=== PATIENT | male | born 1940 | race Caucasian/White ===

== ENCOUNTER 2017-12-12 15:30 | Inpatient (IN) | payer SELFPAY ==
[~2017-12-12] VITALS: Ht 176.5 cm; Wt 86.6 kg
[2017-12-12 10:57] VITALS: BP 179/88
[2017-12-12 10:57] LABS: BASOPHILS % (AUTO) 0.6 % (0.0-5.0); EOSINOPHILS % (AUTO) 3.2 % (0.0-8.0); HEMATOCRIT 39.7 % (42-54); LYMPHOCYTES % (AUTO) 22.1 % (21.0-51.0); MEAN CORPUSCULAR HEMOGLOBIN 30.3 pg (27.0-33.0); MEAN CORPUSCULAR HGB CONC 34.5 g/dL (32.0-36.0); MEAN CORPUSCULAR VOLUME 87.6 fL (79-99); MONOCYTES % (AUTO) 8.7 % (3.0-13.0); NEUTROPHILS % (AUTO) 65.4 % (40.0-77.0); PLATELET COUNT (AUTO) 289 K/uL (130-400); RED BLOOD CELL COUNT(AUTO) 4.53 MIL/uL (4.50-6.20); RED CELL DISTRIBUTION WIDTH 13.7 % (11.0-15.5); WHITE BLOOD COUNT (AUTO) 6.5 K/uL (4.8-10.8)
[2017-12-12 10:58] LABS: APPEARANCE,URINE Clear (CLEAR); BILIRUBIN,URINE Negative (NEGATIVE); COLOR,URINE Yellow (YELLOW); GLUCOSE, URINE (UA) Negative (NEGATIVE); KETONES,URINE Negative (NEGATIVE); LEUKOCYTE ESTERASE ,URINE Negative (NEGATIVE); NITRATE,URINE Negative (NEGATIVE); OCCULT BLOOD,URINE Negative (NEGATIVE); PROTEIN,URINE Trace (NEGATIVE); UROBILINOGEN,URINE 0.2 mg/dL (0.2-1.0)
[2017-12-12 11:05] LABS: CREATININE 1.4 mg/dL (0.5-1.5); POTASSIUM 3.9 mmol/L (3.5-5.1)
[2017-12-12 11:20] LABS: RBC,URINE 0-1 /HPF (0-1)
[2017-12-12 11:22] LABS: BACTERIA,URINE Rare /HPF (None Seen); SQUAMOUS EPITHELIAL CELL,UR None Seen /HPF (0-2); WBC,URINE None Seen /HPF (0-1)
[2017-12-12 11:45] LABS: INR 0.98 (0.85-1.15); PARTIAL THROMBOPLASTIN TIME 27.1 SEC (26.3-35.5); PROTHROMBIN TIME 10.3 SEC (9.6-11.6)
[~2017-12-12 15:30] MED LIST: AMIL5TAB8 PO; AMLO10TA2 PO; CALC-866 PO; CARV25TA PO; HYDR25TA PO; LOSA100T29 PO; MULT-950 PO
[2017-12-15] VITALS (23 sets, daily range): BP systolic 90–179; BP diastolic 64–92
[2017-12-15] MEDS ORDERED: LACTATED RINGERS 1000ML 1,000 ML IV ONE (07:05)
[2017-12-15] MEDS ORDERED: BUPIVACAINE/EPI/PF 0.25% 30ML VIAL IJ ONE (07:29)
[2017-12-15] MEDS ORDERED: CEFAZOLIN SODIUM 1 GM VIAL ONE (07:29)
[2017-12-15] MEDS ORDERED: TRANEXAMIC ACID 1000MG/10ML IV ONE (07:30)
[2017-12-15] MEDS: CEFAZOLIN SODIUM 1 GM VIAL ONE ×2 (07:39→08:45)
[2017-12-15] MEDS ORDERED: PROPOFOL 10 MG/ML 20ML VIAL IV ONE (07:45)
[2017-12-15] MEDS ORDERED: FENTANYL CITRATE PF 50 MCG/1 ML 5ML AMP IV ONE (07:45)
[2017-12-15] MEDS ORDERED: ROPIVACAINE 0.5% 5MG/ML 30ML IJ ONE (08:14)
[2017-12-15] MEDS ORDERED: OXYCODONE HCL 5 MG TAB PO PRN ×2 (10:45)
[2017-12-15] MEDS ORDERED: DIPHENHYDRAMINE HCL 25 MG CAPSULE PO PRN (10:45)
[2017-12-15] MEDS ORDERED: POTASSIUM CHLORIDE 10% ELIXIR 20 MEQ/15 ML UDCUP PO PRN (10:45)
[2017-12-15] MEDS ORDERED: CALCIUM CARBONATE 500 MG TABLET PO PRN (10:45)
[2017-12-15] MEDS ORDERED: POTASSIUM CHLORIDE 20MEQ/100ML 100 ML IV PRN (10:45)
[2017-12-15] MEDS ORDERED: TRAMADOL HCL 50 MG TABLET PO PRN (10:45)
[2017-12-15] MEDS ORDERED: PROMETHAZINE HCL 25 MG/ML 1ML AMPULE IM PRN (10:45)
[2017-12-15] MEDS ORDERED: KETOROLAC TROMETHAMINE 15MG/ML IV PRN (10:45)
[2017-12-15] MEDS: ACETAMINOPHEN 325 MG TAB PO SCH ×2 (10:45→16:17)
[2017-12-15] MEDS ORDERED: DiphenhydrAMINE HCL 50 MG/ML VIAL IVP PRN (10:45)
[2017-12-15] MEDS ORDERED: LIDOCAINE HCL-MPF 1% 2ML VIAL IVP PRN (10:45)
[2017-12-15] MEDS ORDERED: TEMAZEPAM 15 MG CAPSULE PO PRN (10:45)
[2017-12-15] MEDS ORDERED: FERROUS FUMARATE 324 MG TABLET PO PRN (10:45)
[2017-12-15] MEDS ORDERED: MEPERIDINE-PF 25 MG/ML SYG ONE ×2 (11:35→11:50)
[2017-12-15] MEDS: SODIUM CHLORIDE 0.9% 1000ML 1,000 ML IV SCH ×2 (12:30→21:02)
[2017-12-15] MEDS: PSYLLIUM SEED 1 EACH PACKET PO SCH (13:38)
[2017-12-15] MEDS ORDERED: CEFAZOLIN 2GM / 50 ML 50 ML IV SCH (15:45)
[2017-12-15] MEDS: CEFAZOLIN SODIUM 1 GM VIAL IVP SCH (16:18)
[2017-12-15] MEDS: FAMOTIDINE 20MG TAB 20 MG TAB PO SCH (21:04)
[2017-12-15] MEDS: PREGABALIN 25 MG CAP PO SCH (21:05)
[2017-12-15] MEDS: CELECOXIB 200 MG CAP PO SCH (21:05)
[2017-12-15] MEDS: ASPIRIN 325 MG TABLET PO SCH (21:05)
[2017-12-15] MEDS: CARVEDILOL 25 MG TABLET PO SCH (21:06)
[2017-12-15] MEDS ORDERED: LOSARTAN 100 MG TABLET PO SCH (23:50)
[2017-12-15] MEDS ORDERED: LOSARTAN 100 MG TABLET ONE (23:52)
[2017-12-16] MEDS: ACETAMINOPHEN 325 MG TAB PO SCH ×3 (00:13→10:22)
[2017-12-16] MEDS: CEFAZOLIN SODIUM 1 GM VIAL IVP SCH (00:15)
[2017-12-16 00:30] VITALS: BP 153/84
[2017-12-16 04:34] VITALS: BP 157/82
[2017-12-16 05:20] LABS: HEMATOCRIT 34.4 % (42-54); MEAN CORPUSCULAR HEMOGLOBIN 31.2 pg (27.0-33.0); MEAN CORPUSCULAR HGB CONC 35.3 g/dL (32.0-36.0); MEAN CORPUSCULAR VOLUME 88.5 fL (79-99); NUCLEATED RED BLOOD CELLS 0.1 % (0.0-0.19); PLATELET COUNT (AUTO) 294 K/uL (130-400); RED BLOOD CELL COUNT(AUTO) 3.88 MIL/uL (4.50-6.20); RED CELL DISTRIBUTION WIDTH 13.9 % (11.0-15.5); WHITE BLOOD COUNT (AUTO) 13.9 K/uL (4.8-10.8)
[2017-12-16 05:33] LABS: CREATININE 1.5 mg/dL (0.5-1.5); POTASSIUM 3.4 mmol/L (3.5-5.1)
[2017-12-16] MEDS: POTASSIUM CHLORIDE 20 MEQ ERTAB PO PRN ×2 (06:33→09:28)
[2017-12-16 07:35] VITALS: BP 171/80
[2017-12-16] MEDS: SODIUM CHLORIDE 0.9% 1000ML 1,000 ML IV SCH (08:00)
[2017-12-16] MEDS ORDERED: POLYETHYLENE GLYCOL 3350 17 GM POWD.PACK PO SCH (09:00)
[2017-12-16] MEDS ORDERED: MULTIVITAMIN TABLET PO SCH (09:00)
[2017-12-16] MEDS ORDERED: AMILORIDE HCL 5 MG TABLET PO SCH (09:00)
[2017-12-16] MEDS ORDERED: LOSARTAN 100 MG TABLET PO SCH (09:00)
[2017-12-16] MEDS ORDERED: TAMSULOSIN HCL 0.4 MG CAP.ER.24H PO SCH (09:00)
[2017-12-16] MEDS ORDERED: CHOLECALCIFEROL 5000 UNIT PO SCH (09:00)
[2017-12-16] MEDS ORDERED: HYDROCHLOROTHIAZIDE 25 MG TABLET PO SCH (09:00)
[2017-12-16] MEDS ORDERED: AMLODIPINE BESYLATE 5 MG TAB PO SCH (09:00)
[2017-12-16] MEDS: ASPIRIN 325 MG TABLET PO SCH (09:26)
[2017-12-16] MEDS: FAMOTIDINE 20MG TAB 20 MG TAB PO SCH (09:26)
[2017-12-16] MEDS: PREGABALIN 25 MG CAP PO SCH (09:26)
[2017-12-16] MEDS: CELECOXIB 200 MG CAP PO SCH (09:26)
[2017-12-16] MEDS: CARVEDILOL 25 MG TABLET PO SCH (09:28)
[2017-12-16 11:05] VITALS: BP 179/91
[2017-12-16] MEDS ORDERED: ASPI-1012 PO (13:09)
[2017-12-16] MEDS ORDERED: HYDR-309 PO (13:09)
[2017-12-16] MEDS: PSYLLIUM SEED 1 EACH PACKET PO SCH (13:33)
[2017-12-17] MEDS ORDERED: BISACODYL 5 MG TABLET.DR PO PRN (10:45)
[2017-12-18] MEDS ORDERED: BISACODYL 10 MG SUPP.RECT RC PRN (10:45)
== END 2017-12-16 16:00 | disposition home health service (06) | DRG 470 ==
LOC: EDSTATUS 15:30 → DAHIP 12-15 06:25 → 4AH 12-15 12:31
PROVIDERS: ADMIT Orthopaedic Surgery; ATTEND Orthopaedic Surgery
PROC: 0SRD0J9 Replacement of Left Knee Joint with Synthetic Substitute, Cemented, Open Approach (ICD-10-PCS; principal; 2017-12-15 08:30)
DX: M17.12 Unilateral primary osteoarthritis, left knee (principal); I11.0 Hypertensive heart disease with heart failure; I50.32 Chronic diastolic (congestive) heart failure; G89.29 Other chronic pain; Z87.891 Personal history of nicotine dependence
CPT/HCPCS: 36415; 80048; 81001; 85025; 85027; 85610; 85730; 88304; 88311; A4218; C1713; J0690; J2175; J2704; J2795; J3010; J3490; J7030; J7120